=== PATIENT | female | born 1955 | race Caucasian/White ===

== ENCOUNTER 2017-02-07 16:26 | Emergency (ER) | payer BC, OTHER ==
[2017-02-07 16:38] VITALS: BP 185/83; BMI 47.0
--- NOTE | 2017-02-07 16:45 | DR.GENAD ---
HPI - PCP Primary Care Physician: baltazar - Complaint/Symptoms Chief Complaint:: patient states that she was bit by her dog on the right side lower lip. - Nurses notes reviewed Nurses Notes Review: Yes - Source History Provided: Patient - Mode of Arrival Mode of Arrival: Ambulatory - Timing Onset of Chief Complaint: 02/07/17 Came on: Suddenly - Duration Duration: Constant How lon Duration: Minutes - Location Location: right lower lip - Severity Severity: Mild - Other History Other History: dog has had its shots PMH - PMH Past Medical History: Yes Past Medical History: Anxiety, Arthritis, Depression, Migraines Past Surgical History: Yes Surgical History: Cholecystectomy, Ortho Surgery - Family History History of Family Medical Conditions: No - Social History Does patient currently use any type of tobacco product: No Have you used tobacco products in the last 12 months: No Type of Tobacco Use: None Does any household member use tobacco: No Alcohol Use: None Do you use any recreational Drugs:: No Lives With: Family Lives Where: Home - infectious screening In the last 2 months have you had wt loss of >10#?: NO Have you had fever, night sweats or hemotysis?: No Have you traveled outside the country in the last 6 months?: No Isolation: Standard ROS - Review of Systems Constitutional: No Symptoms Reported Eyes: No Symptoms Reported Respiratoy: No Symptoms Reported Cardiovascular: No Symptoms Reported Gastrointestinal/Abdominal: No Symptoms Reported Genitourinary: No Symptoms Reported Neurological: No Symptoms Reported Musculoskeletal: No Symptoms Reported Integumentary: Wound (right lower lip with crescent shape bite) PE - Vital Signs Vitals: Pulse Rate 88 Respiratory Rate 16 Blood Pressure 185/83 O2 Sat by Pulse Oximetry 96 - General Limitations: No Limitations General Appearance: Alert, In No Apparent Distress - Head Head Exam: Normal Inspection - Eyes Eye exam: Normal Appearance, EOMI. negative: Scleral Icterus, Conjunctival Injection - ENT ENT Exam: Normal Exam External Ear Exam: Normal External Inspection Nose Exam: Normal Nose Exam Mouth Exam: Laceration (right lower lip cut from dog biter, 1.5cm well approximated) Throat Exam: Normal Inspection - Neck Neck Exam: Normal Inspection, Full ROM, Trachea Midline - Respiratory Respiratory Exam: negative: Accessory Muscle Use, Respiratory Distress - Extremities Extremities Exam: Normal Inspection - Back Back Exam: Normal Inspection - Neurologic Neurological Exam: Alert, Oriented X3, CN II-XII Intact - Psychiatric Psychiatric Exam: Depressed - Skin Skin Exam: Normal Color. negative: Intact (lower lip cut see mouth) Procedures - Laceration/Wound Repair Right Lower Face Wound Length (cm): 1 Wound Explored: clean Betadine Prep?: No Wound Repaired With: Dermabond Sterile Dressing Applied?: No Splint Applied?: No Sling Applied?: No - Diagnosis Discharge Problem: Lip laceration Qualifiers: Encounter type: initial encounter Qualified Code(s): S01.511A - Laceration without foreign body of lip, initial encounter - Discharge Plan Disposition: HOME, SELF-CARE Condition: Stable Prescriptions: Cephalexin [Keflex Cap 500 mg] 500 mg PO BID #20 cap Indomethacin [Indocin Cap 25 mg] 25 mg PO TID #15 cap - Follow ups/Referrals Follow ups/Referrals: Van Bennett [Primary Care Provider] - 3 days - Instructions Instructions: Facial Laceration
[2017-02-07] MEDS ORDERED: KEFLEX CAP 500 MG PO ONE ×2 (16:52→16:53)
[2017-02-07] MEDS ORDERED: ADACEL TDaP IM ONE ×2 (16:52→16:53)
== END 2017-02-07 17:11 | disposition home or self-care (01) ==
LOC: ER 16:33
PROC: 0WQ20ZZ Repair Face, Open Approach (ICD-10-PCS; principal; 2017-02-07)
DX: S01.511A Laceration without foreign body of lip, initial encounter (principal); W54.0XXA Bitten by dog, initial encounter; Y92.9 Unspecified place or not applicable
CPT/HCPCS: 12011; 90471; 96372; 99282

== ENCOUNTER → 2017-07-01 | Outpatient (CLI) | payer OTHER ==
[2017-07-01 15:53] LABS: HEMOGLOBIN A1C 6.1 % (4.5-6.2)
[2017-07-01 16:11] LABS: FREE T4 (FREE THYROXINE) 1.13 ng/dL (0.76-1.46); TSH (3RD GENERATION) 1.688 uIU/mL (0.358-3.74)
== END ==
LOC: LAB 14:51
PROVIDERS: ATTEND Internal Medicine
DX: E78.2 Mixed hyperlipidemia (principal); E03.8 Other specified hypothyroidism; E51.9 Thiamine deficiency, unspecified; E53.8 Deficiency of other specified B group vitamins
CPT/HCPCS: 36415; 80061; 82607; 83036; 84425; 84439; 84443; 86677

== ENCOUNTER → 2017-08-05 | Outpatient (CLI) | payer OTHER ==
--- NOTE | 2017-08-12 11:22 | MG ---
HISTORY: SCREENING Comparison: November 16, 2015 and March 15, 2016 FINDINGS: Bilateral CC and MLO projections of the right and left breast were obtained. Heterogeneously dense f ibroglandular tissue is seen to be present with interval stereotactic biopsy on the right and a stabl e mammographic appearance of the left breast. No new or developing suspicious architectural distorti on, mass or clustered microcalcifications can be observed to suggest malignancy. No skin thickening or nipple retraction is appreciated. No pathological lymphadenopathy can be identified. Benign-appe aring calcifications are noted within the right and left breast. A biopsy clip is noted along a group ing of microcalcifications in the upper-outer right breast which are stable as compared to the stereo tactic images with but which have slightly decreased in number as compared to the prior screening exa m. Pathologic results demonstrated fibrocystic change, usual ductal hyperplasia, and sclerosing adeno sis. IMPRESSION: NO RADIOGRAPHIC EVIDENCE OF MALIGNANCY. ACR CATEGORY 2 - benign findings. FOLLOW-UP EXAM 1 YEAR. Diagnostic CAD was utilized and reviewed. * 0 (ZERO) - ASSESSMENT INCOMPLETE; ADDITIONAL IMAGING IS NEEDED. * 1/1 (ONE) - NEGATIVE. * 2/II (TWO) - BENIGN FINDINGS. * 3/III (THREE) - PROBABLY BENIGN FINDING; SHORT INTERVAL FOLLOW-UP SUGGESTED. * 4/IV (FOUR) - SUSPICIOUS ABNORMALITY; BIOPSY SHOULD BE CONSIDERED. * 5/V (FIVE) - HIGHLY SUSPICIOUS OF MALIGNANCY; BIOPSY SHOULD BE PERFORMED. A NEGATIVE X-RAY REPORT SHOULD NOT DELAY BIOPSY IF A DOMINANT OR CLINICALLY SUSPICIOUS MASS IS PRESENT; 4 TO 8 PERCENT OF CANCERS ARE NOT IDENTIFIED BY X-RAY. A NEGA TIVE REPORT MAY REINFORCE THE CLINICAL IMPRESSION. ADENOSIS AND DENSE BREASTS MAY OBSCURE AN UNDERLY ING NEOPLASM. Reported By:
== END ==
LOC: RAD 14:13
PROVIDERS: ATTEND Internal Medicine
DX: Z12.31 Encounter for screening mammogram for malignant neoplasm of breast (principal)
CPT/HCPCS: 77067

== ENCOUNTER → 2017-08-22 | Outpatient (CLI) | payer OTHER ==
--- NOTE | 2017-08-28 12:51 | MRI ---
STUDY: MRI OF THE CERVICAL SPINE HISTORY: Cervicalgia. Pain in T-spine. Comparison: None. Technique: Multiplanar multisequence MRI of the cervical spine was obtained utilizing standard depart mental protocol. Sagittal T1, T2, T2 STIR, axial T1 and axial T2 weighted images of the cervical spin e were performed. Findings: Sagittal images: Vertebral body heights are within normal limits. There is grade 1 anterolisthesis of C3 on C4. There is multilevel degenerative disc disease and degenerative endplate change. There is a Schmorl's node w ith associated focal this is edema in the superior endplate of C7. The cervical spinal cord itself is normal in appearance, without evidence of intrinsic signal abnormality. There is no evidence of cord compression. Axial images: C2 -- C3: Normal. C3 -- C4: There is a posterior disc osteophyte complex and bilateral uncovertebral osteophyte formati on. Central canal and neural foramina are adequate. C4 -- C5: There is mild posterior disc osteophyte complex. There is bilateral uncovertebral osteophyt e formation. This results in mild right neural foraminal stenosis. The central canal and left neural foramina are adequate. C5 -- C6: There is a shallow disc osteophyte complex and bilateral uncovertebral osteophyte formation . The central canal and neural foramina are adequate. C6 -- C7: There is a shallow disc osteophyte complex and bilateral uncovertebral osteophyte formation . The central canal and neural foramina are adequate. C7 -- T1: Normal. IMPRESSION: 1. Mild multilevel cervical spondylosis as described. 2. No evidence of significant spinal stenosis. 3. Mild neural foraminal stenosis at C4/5 on the right. Reported By:
--- NOTE | 2017-08-28 13:09 | MRI ---
STUDY: MRI OF THE THORACIC SPINE History: Thoracic spine pain. Technique: An MRI examination of thoracic spine was performed using sagittal T1, T2, T2 STIR, and axi al T1 and T2 GRE images. Comparison: None. Findings: Vertebral body heights and alignment are within normal limits. Marrow signal is age-appropr iate. There is mild multilevel degenerative disc disease most prominent at T4/5. There is no evidence of thoracic spinal cord compression. No intrinsic signal abnormalities are identified within the spo t thoracic spinal cord itself. There is focal fat in the T6 vertebral body which suppresses on T2 sti r images. Axial images show mild disc bulging at T 4/5 and 5/6. There is no evidence of cord compression. There is no evidence of spinal stenosis at any other visualize level. There is no significant neural sisi inal compromise. Impression: 1. Mild multilevel degenerative disc disease and degenerative endplate change. 2. No significant spinal stenosis or neural foraminal narrowing. Reported By:
== END | disposition home or self-care (01) | DRG 552 ==
LOC: RAD 13:41
PROVIDERS: ATTEND Internal Medicine
DX: M54.2 Cervicalgia (principal); M54.6 Pain in thoracic spine; M47.892 Other spondylosis, cervical region; M48.02 Spinal stenosis, cervical region
CPT/HCPCS: 72141; 72146

== ENCOUNTER → 2018-02-06 | Outpatient (CLI) | payer OTHER ==
--- NOTE | 2018-02-06 16:24 | MRI ---
MRI right shoulder without contrast Indication: Right shoulder pain and stiffness Technique: Multiplanar, multi sequence imaging of the right shoulder without IV contrast administrati on. Findings: There is high-grade partial-thickness articular surface tear of the anterior and mid fibers of the supraspinatus tendon seen on coronal images 09-10. The tear propogates from anterior to poste rior with delamination of the tear into the myotendinous junction of the posterior supraspinatus tend on and anterior infraspinatus tendon seen on coronal image 14. The posterior infraspinatus tendon dem onstrates undersurface fraying/partial thickness tearing. No muscle belly atrophy or full-thickness t ear identified within the supraspinatus or infraspinatus tendons. The subscapularis tendon demonstrates high-grade /full-thickness tearing of the mid and super fibers of the subscapularis tendon seen best on axial image 16. The intra-articular long head biceps tendon demonstrates split thickness tear the tendon is subluxed medially from the bicipital groove seen best on axial images 14-15. There is transverse humeral ligamentous tear. Moderate tenosynovitis of the b iceps tendon sheath. There is macerated tear the superior labrum at the biceps labral anchor with pro pagation of tear into the posterior and anterior superior labrum. There is a mildly displaced anterio r inferior and anterior labral tear with periosteal stripping seen on axial images 15-17. There is pr opagation of tear into the posterior inferior labrum. There is moderate glenohumeral articular cartil age thinning along with large subcortical cyst formation within the greater tuberosity. There is a la rge joint effusion with synovitis. The AC joint demonstrates moderate synovial an alternate hypertrop hic change with very mild mass effect on the adjacent rotator cuff. All no axillary adenopathy. Infer ior glenohumeral ligament is intact. Impression: 1. High-grade partial-thickness tear of the articular surface fibers of the anterior and mid supraspi natus tendon. Propagation of tear anterior to posterior causes delamination to the level of the myote ndinous junction of the posterior supraspinatus tendon and anterior infraspinatus tendon. Mild unders urface irregularity and fraying of the posterior infraspinatus tendon. Neither demonstrates significa nt muscle belly atrophy. 2. High-grade tearing likely full-thickness tear of the mid and superior fibers of the subscapularis tendon with moderate muscle belly atrophy. There is narrowing of the coracohumeral interval consisten t with impingement and likely contributing to/cause of subscapularis tear. 3. Split thickness tear of the intra-articular long head biceps tendon with medial dislocation of the biceps tendon secondary to its subscapularis tendon and transverse humeral ligamentous tear. 4. Essentially 360 degenerative tear of the labrum with periosteal stripping and mild displacement o f the anterior inferior labral tear. 5. Moderate glenohumeral joint osteoarthrosis with joint effusion and synovitis. 6. Moderate AC joint osteoarthrosis without convincing evidence of mass effect or impingement on the rotator cuff. Reported By:
== END | disposition home or self-care (01) | DRG 556 ==
LOC: RAD 13:56
PROVIDERS: ATTEND Internal Medicine
DX: M25.511 Pain in right shoulder (principal); M75.101 Unspecified rotator cuff tear or rupture of right shoulder, not specified as traumatic; S46.111A Strain of muscle, fascia and tendon of long head of biceps, right arm, initial encounter; X58.XXXA Exposure to other specified factors, initial encounter; S43.491A Other sprain of right shoulder joint, initial encounter; M19.011 Primary osteoarthritis, right shoulder
CPT/HCPCS: 73221